=== PATIENT | female | born 1935 | race Two or more races ===

== ENCOUNTER 2023-09-24 11:04 | Outpatient (CLI) | payer OTHER | END 2023-09-24 11:06 | disposition home or self-care (01) | LOC: NUCLEAR 11:04 | PROVIDERS: ATTEND Internal Medicine | DX: I11.9 Hypertensive heart disease without heart failure (principal); Z98.890 Other specified postprocedural states ==

== ENCOUNTER 2024-03-17 08:23 | Outpatient (CLI) | payer OTHER | END 2024-03-17 08:44 | disposition home or self-care (01) | LOC: TOM 08:23 | PROVIDERS: ATTEND Family Medicine | DX: R10.12 Left upper quadrant pain (principal); R10.32 Left lower quadrant pain; D37.4 Neoplasm of uncertain behavior of colon; S22.000A Wedge compression fracture of unspecified thoracic vertebra, initial encounter for closed fracture | CPT/HCPCS: 72074; 74177; Q9965 ==

== ENCOUNTER 2024-12-23 10:17 | Outpatient (CLI) | payer OTHER | END 2024-12-23 10:18 | disposition home or self-care (01) | LOC: RAD 10:17 | PROVIDERS: ATTEND Internal Medicine | DX: I11.9 Hypertensive heart disease without heart failure (principal); E78.2 Mixed hyperlipidemia ==